=== PATIENT | female | born 1960 | race Caucasian/White ===

== ENCOUNTER 2019-01-31 12:39 | Inpatient (IN) | payer OTHER ==
[~2019-01-31] VITALS: Ht 170.2 cm; Wt 97.5 kg
[2019-01-31 12:54] VITALS: Ht 170.2 cm; Wt 97.5 kg
--- NOTE | 2019-01-31 13:08 | NUR ---
PT BIB SELF C/C N/V GENERALIZE WEAKNESS X [address] TO [place]
--- NOTE | 2019-01-31 13:12 | NUR ---
DR MONCADA AT BEDSIDE TO [facility]
[2019-01-31 14:11] LABS: BASOPHIL % 0.2 % (0-2); PLATELET COUNT 238 x10^3mcL (130-400); RED CELL DISTRIBUTION WIDTH 14.2 % (11.5-14.5)
[2019-01-31 14:22] LABS: CALCIUM 9.3 mg/dL (8.5-10.1); CARBON DIOXIDE 27.4 mmol/L (21-32); CREATININE SERUM 1.1 mg/dL (0.6-1.0); POTASSIUM SERUM 4.2 mmol/L (3.5-5.1)
[2019-01-31 14:27] LABS: ALBUMIN 3.4 g/dL (3.4-5.0); BILIRUBIN TOTAL 0.28 mg/dL (0.20-1.00); TOTAL PROTEIN, SERUM 7.3 g/dL (6.4-8.2)
[2019-01-31] MEDS ORDERED: NOR10 PO (14:50)
[2019-01-31] MEDS ORDERED: LIPI10 PO (14:51)
[2019-01-31] MEDS ORDERED: METFORMIN HYD1000 M2 PO (14:51)
[2019-01-31] MEDS ORDERED: TRAMADOL HCL50 MG PO (14:52)
[2019-01-31] MEDS ORDERED: HYDROXYCHLOROQ200 MG PO (14:52)
[2019-01-31] MEDS ORDERED: CYMBALTA60 M1 PO (14:52)
[2019-01-31] MEDS ORDERED: LORAZEPAM0.5 MG PO (14:53)
[2019-01-31] MEDS ORDERED: LYRICA300 MG PO (14:53)
[2019-01-31] MEDS ORDERED: AMBIEN10 MG PO (14:53)
[2019-01-31] MEDS ORDERED: COREG6.25 M1 (14:54)
--- NOTE | 2019-01-31 15:25 | NUR ---
PT ADMIT TO MS GAVE REPORT TO YUAN
--- NOTE | 2019-01-31 15:40 | NUR ---
RECEIVED PT FROM ED VIA WHEELCHAIR, CAME IN FOR X1 BLACK STOOL TODAY AND X1 BLACK EMESIS ON SUNDAY. AAOX4. DENIES HEADACHE/DIZZINES. ABLE TO FOLLOW COMMANDS. NO SOB NOTED, LUNG SOUNDS CTA, O2 BLO=596%, RA. DENIES CHEST PAIN/PRESSURE, RI=89. DENIES ABDOMINAL PAIN, BOWEL SOUNDS ACTIVE, ABDOMEN IS SOFT. LAST BM=01/31/19, FORMED AND BLACK. VOIDS. PALE. PULSES ARE PALPABLE. IV SITE ON THE LAC GAUGE [address] AND INTACT. [address] REBOLLAR AT BEDSIDE, ASSESSED THE PT AND DISCUSSED THE PALN FOR EGD TOMORROW INCLUDING ITS RISKS AND BENEFITS, PT VERBALIZES UNDERSTANDING AND IS AGREEABLE FOR THE PROCEDURE. ALL QUESTIONS WERE ADDRESSED BY DR. REBOLLAR. SIDE RAILS UPX2. CALL LIGHT ON REACH. FAMILY AT BEDSIDE. ENDORSED TO PRIMARY NURSE YUAN FOR CONTINUITY OF CARE
--- NOTE | 2019-01-31 15:40 | NUR ---
PLEASE ENTER FULL NAMES OF LEATHER FLESHER/RN Patient data collected by (LEATHER FLESHER): CALVIN DUMONT Assessment reviewed and completed by (RN): Brandi ROJAS
[2019-01-31 15:59] VITALS: BP 138/74
--- NOTE | 2019-01-31 16:00 | NUR ---
RESUMED CARE OF THIS PT FROM REBEKAH. PT IN NO ACUTE DISTRESS. IVF INFUSING WELL. NO C/O PAIN OR DISCOMFORT. ORIENTED TO ROOM, CALL LIGHT WITHIN REACH. WILL CONTINUE WITH PLAN OF CARE.
--- NOTE | 2019-01-31 18:28 | NUR ---
REMAINS IN NO DISTRESS. AWAKE AND ALERT. NO CHANGES IN VS. CONCENT FOR EGD SIGNED AND CHECK LIST STARTED. IVF INFUSING WELL, SITE CLEAR. PT DENIES PAIN OR DISCOMFORT AT THIS TIME. NO N.V NOR BLOODY STOOLS NOTED.CALL LIGHT WITHIN REACH. WILL BE ENDORSED TO INCOMING SHIFT.
--- NOTE | 2019-01-31 20:00 | NUR ---
RECEIVED PT IN BED. A/O X4. ABLE TO VERBALIZE NEEDS. RESP. EVEN AND UNLABORED. ON ROOM AIR, LUNG SOUNDS CLEAR BILAT. NO ACUTE DISTRESS NOTED. AFEBRILE AND VITAL SIGNS STABLE. DENIES CP OR ANY DISCOMFORT AT THIS TIME. ABD. SOFT, NON DISTENDED, BS ACTIVE, NO N/V NOTED. NO ACTIVE BLEEDING NOTED. IVF, D5NS AT 80ML/HR, INTACT AND INFUSING VIA LAC, SITE CLEAR. ASSISTED WITH HS CARE. CALL LIGHT WITHIN REACH. WILL CONTINUE TO MONITOR.
[2019-01-31 20:37] VITALS: BP 130/69
--- NOTE | 2019-01-31 23:40 | NUR ---
PT REQUESTED SLEEPING MED. MEDICATED WITH AMBIEN ORDERED. CALL LIGHT WITHIN REACH. WILL CONTINUE TO MONITOR.
--- NOTE | 2019-01-31 23:59 | NUR ---
COMPLAINED OF BACK PAIN, 5/10, MEDICATED WITH ULTRAM ORDERED. WILL CONTINUE TO MONITOR.
--- NOTE | 2019-02-01 02:22 | NUR ---
NO COMPLAINTS NOTED AT THIS TIME. RESTING QUIETLY WITH EYES CLOSED, APPEARS ASLEEP, EASILY AROUSABLE. RESP. EVEN AND UNLABORED. NO ACUTE DISTRESS NOTED. NPO MAINTAINED. IVF INTACT AND INFUSING WELL. CALL LIGHT WITHIN REACH. WILL CONTINUE TO MONITOR.
[2019-02-01 05:49] VITALS: BP 154/79
--- NOTE | 2019-02-01 06:09 | NUR ---
NO COMPLAINTS NOTED AT THIS TIME. RESP. EVEN AND UNLABORED. NO ACUTE DISTRESS NOTED. AFEBRILE AND VITAL SIGNS STABLE. NPO MAINTAINED. NO N/V NOTED. NO ACTIVE BLEEDING NOTED. IVF INTACT AND INFUSING WELL, SITE CLEAR. KEPT COMFORTABLE. WILL CONTINUE TO MONITOR.
--- NOTE | 2019-02-01 06:58 | NUR ---
RECEIVED PT FROM [employer] SPECIALIST NURSE. PT RESING IN BED, AOX4, RESP E/U ON RA. DENIES NAUSEA OR ABD PAIN AT THIS TIME, NO ACUTE DISTRESS NOTED. IV TO LAC W/ NO SIGNS OF INFILTRATION, IVF INFUSING WELL. PT NPO FOR SCHEDULED EGD TODAY. BED IN LOWEST POSITION AND CALL LIGHT WITHIN REACH. WILL CONTINUE TO MONITOR.
[2019-02-01 07:53] VITALS: BP 149/81
--- NOTE | 2019-02-01 08:24 | NUR ---
PT BROUGHT DOWN FOR EGD AT THIS TIME.
--- NOTE | 2019-02-01 09:47 | NUR ---
PT BACK FROM EGD. DENIES NAUSEA, SOB OR ABD PAIN. BED IN LOWEST POSITION AND CALL LIGHT WITHIN REACH. PT AT BEDSIDE. WILL CONTINUE TO MONITOR.
[2019-02-01 14:31] LABS: BASOPHIL % 0.3 % (0-2); PLATELET COUNT 191 x10^3mcL (130-400); RED CELL DISTRIBUTION WIDTH 14.1 % (11.5-14.5)
[2019-02-01 14:42] LABS: CALCIUM 8.7 mg/dL (8.5-10.1); CHLORIDE SERUM 106 mmol/L (98-107); CREATININE SERUM 0.9 mg/dL (0.6-1.0); GFR1 > 60 mL/min; GLUCOSE SERUM 127 mg/dL (74-106); POTASSIUM SERUM 4.1 mmol/L (3.5-5.1); SODIUM SERUM 145 mmol/L (136-145)
--- NOTE | 2019-02-01 15:16 | NUR ---
PT DISCHARGED. REVIEWED DISCHARGE PACKET W/ PT INCLUDING NEW RX MEDS. PT AOX4, RESP E/U ON RA, VS STABLE, DENIES PAIN AT THIS TIME. IV TO LAC REMOVED, CATH INTACT, GAUZE DRESSING APPLIED. PT AMBULATORY TO [facility], ESCORTED BY PAULINO RAY W/ NO ACUTE INCIDENCE.
== END 2019-02-01 15:05 | disposition home or self-care (01) | DRG 378 ==
LOC: ED 12:39 → MU 14:49
PROVIDERS: Internal Medicine; Specialist; ADMIT Internal Medicine Pulmonary Disease
PROC: 0DB68ZX Excision of Stomach, Via Natural or Artificial Opening Endoscopic, Diagnostic (ICD-10-PCS; principal; 2019-02-01 08:30)
DX: K25.4 Chronic or unspecified gastric ulcer with hemorrhage (principal); D62 Acute posthemorrhagic anemia; I10 Essential (primary) hypertension; E11.9 Type 2 diabetes mellitus without complications; E66.9 Obesity, unspecified; M06.9 Rheumatoid arthritis, unspecified; E78.5 Hyperlipidemia, unspecified; I25.10 Atherosclerotic heart disease of native coronary artery without angina pectoris; F25.9 Schizoaffective disorder, unspecified; Z90.710 Acquired absence of both cervix and uterus; Z88.0 Allergy status to penicillin; Z79.899 Other long term (current) drug therapy
CPT/HCPCS: 43235; 82962; C9113; G0378; J1200; J1610; J2250; J2310; J3010; J3490; J7030; J7042

== ENCOUNTER 2020-05-07 12:19 | Emergency (ER) | payer OTHER ==
[~2020-05-07] VITALS: Ht 170.2 cm; Wt 104.3 kg
[~2020-05-07 12:19] MED LIST: AMBIEN10 MG PO; COREG6.25 M1; CYMBALTA60 M1 PO; HYDROXYCHLOROQ200 MG PO; LIPI10 PO; LORAZEPAM0.5 MG PO; LYRICA300 MG PO; METFORMIN HYD1000 M2 PO; NOR10 PO; TRAMADOL HCL50 MG PO
[2020-05-07] MEDS ORDERED: MOT600 PO (13:21)
[2020-05-07] MEDS ORDERED: ACETAMINOPHEN-H1 TA1 PO ×2 (13:48→13:50)
[2020-05-07 14:22] VITALS: BP 165/81
== END 2020-05-07 14:22 | disposition home or self-care (01) ==
LOC: ED 12:19
DX: S82.401A Unspecified fracture of shaft of right fibula, initial encounter for closed fracture (principal); I10 Essential (primary) hypertension; E11.9 Type 2 diabetes mellitus without complications; Z88.0 Allergy status to penicillin; W01.0XXA Fall on same level from slipping, tripping and stumbling without subsequent striking against object, initial encounter; Y93.89 Activity, other specified; Y92.89 Other specified places as the place of occurrence of the external cause; Y99.8 Other external cause status